=== PATIENT | male | born 1995 | race African-American/Black ===

== ENCOUNTER 2017-06-16 12:19 | Inpatient (IN) | payer BC ==
[~2017-06-16] VITALS: Ht 172.7 cm; Wt 55.0 kg
[~2017-06-16 12:19] MED LIST: AZIT250T94 PO; IBUP-1542 PO; UDROBDM PO
[2017-06-16] MEDS ORDERED: SOD CHLORIDE 0.9% 1,000 ML IV STA (12:26)
[2017-06-16 12:49] LABS: BASOPHILS % 0.3 % (0.0-2.0); EOSINOPHILS # 0.2 10^3/ul (0.0-0.5); EOSINOPHILS % 1.6 % (0.0-7.0); HEMATOCRIT 42.9 % (42.0-52.0); LYMPHOCYTES # 2.5 10^3/ul (0.8-2.9); LYMPHOCYTES % 24.9 % (15.0-51.0); MEAN CORPUSCULAR HEMOGLOBIN 27.6 pg (29.0-33.0); MEAN CORPUSCULAR HGB CONC 32.6 g/dl (32.0-37.0); MEAN CORPUSCULAR VOLUME 84.4 fl (82.0-101.0); MEAN PLATELET VOLUME 9.7 fl (7.4-10.4); MONOCYTE # 1.1 10^3/ul (0.3-0.9); MONOCYTES % 11.1 % (0.0-11.0); NEUTROPHIL # 6.2 10^3/ul (1.6-7.5); NEUTROPHILS % 61.7 % (39.0-77.0); PLATELET COUNT 267 10^3/UL (140-415); RED BLOOD COUNT 5.08 10^6/ul (4.70-6.10); RED CELL DISTRIBUTION WIDTH 13.3 % (11.5-14.5)
[2017-06-16] MEDS ORDERED: ONDANSETRON 4 MG INJ IV STA (13:05)
[2017-06-16 13:07] LABS: ALANINE AMINOTRANSFERASE 58 IU/L (13-69); ALBUMIN 4.6 g/dl (3.3-4.9); ALBUMIN/GLOBULIN RATIO 1.43; ALKALINE PHOSPHATASE 76 IU/L (42-121); ANION GAP 15 (8-16); ASPARTATE AMINO TRANSFERASE 89 IU/L (15-46); BILIRUBIN,INDIRECT 0.7 mg/dl (0-1.1); BILIRUBIN,TOTAL 0.7 mg/dl (0.2-1.3); BLOOD UREA NITROGEN 19 mg/dl (7-20); CALCIUM 9.3 mg/dl (8.4-10.2); CARBON DIOXIDE 29 mmol/L (21-31); CHLORIDE 101 mmol/L (97-110); CREATININE 1.03 mg/dl (0.61-1.24); GLUCOSE 178 mg/dl (70-220); POTASSIUM 3.7 mmol/L (3.5-5.1); SODIUM 141 mmol/L (135-144); TOTAL PROTEIN 7.8 g/dl (6.1-8.1)
--- NOTE | 2017-06-16 13:08 | ERA ---
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 The patient's family has reportedly been working with him to try and get him into rehab. He was actually scheduled to go to rehab today and the Van was on the way. The patient reportedly overdosed last night, but he did not seek help at that time. He was with a friend this afternoon before the van was set to arrive who injected the patient with what he thought was heroin. The patient apparently went unresponsive and apneic. The patient's friend was concerned that he was overdosing and he called the patient's mother who then called an ambulance. Upon cement handler arrival, the patient did appear to be apneic and unresponsive. He was given 0.4 mg of Narcan IM with great response. The patient became alert and agitated and nauseated. He remained alert during transport. The patient fell at some point last night or today. He had left-sided facial bruising and dried blood in his left nares. He reports having had a nosebleed at some point. Upon arrival, the patient was coughing up blood. It was unclear if this was from the nosebleed or from something else. The patient denies feeling sick recently. The patient denies fever or chills. The patient has had no headache or vision changes. The patient denies lightheadedness or dizziness. The patient has had no chest pain. The patient did endorse shortness of breath. The patient denies abdominal pain or changes to bowel movements or urination. The patient has had no focal deficits. The patient has had no weakness or numbness or tingling to the face or extremities. ROS All systems reviewed and are negative except as per history of present illness. Medications Home Meds Discontinued Scripts Ibuprofen* (Motrin*) 600 Mg Tab, 600 MG PO Q6, #14 TAB Prov:FILEMON CRUZ PA-C 02/03/16 Guaifenesin-Dextromethorphan* (Robitussin* DM) 100MG/10MG/5ML Syrup, 10 ML PO Q4H Y for COUGH for 7 Days, ML Prov:FILEMON CRUZ PA-C 02/03/16 Azithromycin* (Zithromax*) 250 Mg Tablet, 250 MG PO .STEFANIA DIRECTED, #6 TAB TAKE 500 MG (2 TABS) THE FIRST DAY THEN 250 MG (1 TAB) DAYS 2-5 Prov:FILEMON CRUZ PA-C 02/03/16 Allergies Allergies: Coded Allergies: No Known Allergy (Unverified , 06/16/17) PMhx/Soc History of Surgery: No Anesthesia Reaction: No Hx Neurological Disorder: No Hx Respiratory Disorders: Yes (asthma) Hx Cardiac Disorders: No Hx Psychiatric Problems: No Hx Miscellaneous Medical Probl: No Hx Alcohol Use: Yes (occasionally) Hx Substance Use: No Hx Tobacco Use: Yes Smoking Status: Current every day smoker FmHx Family History: No diabetes Physical Exam Vitals Vital Signs Date Time Temp Pulse Resp B/P Pulse Ox O2 Delivery O2 Flow Rate FiO2 06/16/17 12:30 98.7 101 18 119/92 98 Physical Exam Const: No apparent distress, well-developed, well-nourished Head: Left-sided facial bruising with soft tissue tenderness. Dried blood in the left nares. Eyes: Normal Conjunctiva. Extraocular movements intact. ENT: Normal External Ears, Nose and Mouth. Neck: Full range of motion. ~ No meningismus. Resp: Diffuse coarse breath sounds, bilateral rales. Cardio: Regular rate and rhythm, no murmurs Abd: Soft, non tender, non distended. Normal bowel sounds Skin: No petechiae or rashes Back: No midline or flank tenderness Ext: No cyanosis, or edema Neur: Awake and alert, oriented 4. Cranial nerves intact. No facial droop. Normal strength and sensation in all extremities. Coordination with finger to nose normal. Psych: Normal Mood and Affect Result Diagram: 06/16/17 1238 06/16/17 1238 Results 24 hrs Laboratory Tests Test 06/16/17 12:00 06/16/17 12:38 06/16/17 14:41 Creatine Kinase 209IU/L White Blood Count 10.010^3/ul Red Blood Count 5.0810^6/ul Hemoglobin 14.0g/dl Hematocrit 42.9% Mean Corpuscular Volume 84.4fl Mean Corpuscular Hemoglobin 27.6pg Mean Corpuscular Hemoglobin Concent 32.6g/dl Red Cell Distribution Width 13.3% Platelet Count 64900^3/UL Mean Platelet Volume 9.7fl Neutrophils % 61.7% Lymphocytes % 24.9% Monocytes % 11.1% Eosinophils % 1.6% Basophils % 0.3% Nucleated Red Blood Cells % 0.0/100WBC Neutrophils # 6.210^3/ul Lymphocytes # 2.510^3/ul Monocytes # 1.110^3/ul Eosinophils # 0.210^3/ul Basophils # 0.010^3/ul Nucleated Red Blood Cells # 0.010^3/ul Sodium Level 141mmol/L Potassium Level 3.7mmol/L Chloride Level 101mmol/L Carbon Dioxide Level 29mmol/L Anion Gap 15 Blood Urea Nitrogen 19mg/dl Creatinine 1.03mg/dl Glucose Level 178mg/dl Calcium Level 9.3mg/dl Total Bilirubin 0.7mg/dl Direct Bilirubin 0.00mg/dl Indirect Bilirubin 0.7mg/dl Aspartate Amino Transf (AST/SGOT) 89IU/L Alanine Aminotransferase (ALT/SGPT) 58IU/L Alkaline Phosphatase 76IU/L Total Protein 7.8g/dl Albumin 4.6g/dl Globulin 3.20g/dl Albumin/Globulin Ratio 1.43 Salicylates Level < 1.0mg/dl Acetaminophen Level < 10.0ug/ml Ethyl Alcohol Level < 10.0mg/dl Blood Gas Specimen Source Blood arterial Arterial Blood Date Drawn 06/16/2017 2:49:30 PM Arterial Blood pH (Temp corrected) 7.278 Arterial Blood pCO2 (Temp correct) 63.3mmhg Arterial Blood pO2 (Temp corrected) 268.7mmHG Arterial Blood HCO3 28.9mmol/L Arterial Blood Base Excess 0.4mmol/L Arterial Blood Oxygen Saturation 99.4mmHG Shyam Test ACCEPTAB Arterial Blood Gas Puncture Site Left Radial Arterial Blood Carboxyhemoglobin 0.3% Arterial Blood Methemoglobin 0.4% Blood Gas A-a O2 Differential 381.0mmHg Oxyhemoglobin Percent 98.7% Total Hemoglobin 15.1g/dl Blood Gas Temperature 37.0C Blood Gas Modality MASK - NRB FiO2 100.0% Blood Gas Critical Value Read Back MD SHALINI Blood Gas Notified Whom WILFREDO Blood Gas Notified Time 06/16/2017 2:53:29 PM Current Medications Medications (Trade) Dose Ordered Sig/Jacque Route PRN Reason Start Time Stop Time Status Last Admin Dose Admin Sodium Chloride (NS) 1,000 ml @ 1,000 mls/hr Q1H STAT IV 06/16/17 12:26 06/16/17 13:25 DC 06/16/17 12:37 Ondansetron HCl (Zofran Inj) 4 mg ONCE STAT IV 06/16/17 13:05 06/16/17 13:07 DC 06/16/17 13:12 Ondansetron HCl (Zofran Inj) 4 mg ER BRIDGE PRN IV NAUSEA AND/OR VOMITING 06/16/17 14:30 06/17/17 14:29 Acetaminophen (Tylenol Tab) 650 mg ER BRIDGE PRN PO MILD PAIN/FEVER 06/16/17 14:30 06/17/17 14:29 Procedures/MDM MDM Patient's presentation warrants further investigation. The patient has a history of polysubstance abuse but responded very well to Narcan. I am highly suspicious of narcotic overdose. The patient was responsive throughout his evaluation by me in the emergency department. He states that his friend gave him some IV drug that he is not sure of. He thinks he may have gotten a speedball based on how he feels presently. A toxicologic workup will be performed. During initial assessment, the patient had an episode of hemoptysis. He did have epistaxis earlier today and had dried blood in his nares. When he was connected to the monitor, he was also found to be hypoxic. Given that he received Narcan today, I have to be suspicious of Narcan-induced pulmonary edema. The patient's hemoptysis could be from his epistaxis LABS The patient's blood work was obtained and reviewed. The patient seemed shows no leukocytosis or left shift. The patient is afebrile, and I do not suspect a systemic infection. The patient is not anemic today. The patient's platelet count is unremarkable. The patient's CMP shows no signs of metabolic or electrolyte abnormality. The patient has normal renal and hepatic function testing. The patient's tox studies showed no salicylates or Tylenol or alcohol in his system. His UDS is pending. EKG EKG read by me: Rate/Rhythm: Regular rate and rhythm at a rate of 84 Intervals: Normal, incomplete right bundle branch block [place]: Normal Impression: J-point elevation, no evidence of acute ischemia or arrhythmia IMAGING CT head IMPRESSION: 1. No acute intracranial abnormality. No intracranial hemorrhage, extra-axial fluid collection, mass lesion or hydrocephalous. 2. No loss of cheng-white matter differentiation to suggest diffuse hypoxic ischemic injury at this time. If clinical concern for hypoxic ischemic injury, MRI is recommended for further evaluation. Electronically viewed and signed by .Kieran Cardona MD, MD on 06/16/2017 14: 11 CT Face IMPRESSION: 1. Suggestion of a nondisplaced fracture of the nasal spine of the maxilla. 2. Otherwise, normal CT of the maxillofacial region. No evidence of fracture. Electronically viewed and signed by .Kieran Cardona MD, MD on 06/16/2017 14: 14 CXR IMPRESSION: Diffuse bilateral ground-glass lung densities. This may represent edema or pneumonia Electronically viewed and signed by .Williams Ruby MD, on 06/16/2017 13:41 TREATMENT/DISPOSITION At this time, am concerned about flash pulmonary edema related to narcotic overdose and Narcan administration. The patient was oxygenating very well on nonrebreather, and he appeared more comfortable. It is unclear at this time if the patient is having hemoptysis from his lungs versus his recent epistaxis. After his initial first few coughs, the hemoptysis appeared to resolve. The patient does have a nasal bone fracture but no obvious other abnormalities to the face. There are no intracranial abnormality. The patient's blood work is essentially unremarkable. We will need to follow-up with his UDS. At this time , however, I do not feel that any further emergent treatment is necessary. The patient will require admission to the hospital. He was accepted by Dr. Jacobsen as per his insurance status at 2:30 PM on June 16, 2017 to a telemetry bed. She requested that an ABG be drawn with consideration of changing to ICU level care if necessary. Of note, the patient reports that he has tested negative for HIV in the past. Another possible etiology of his diffuse interstitial markings could be PCP. His HIV status should be further elucidated in the hospital. Pneumonia is another possibility, but I do not see evidence of a infection at this time. Pulmonary edema is higher on my differential. The patient was signed out to Dr. Farah at 2:45 PM on June 16, 2017. The patient is currently pending the ABG. Departure Diagnosis: Primary Impression: Intentional drug overdose Qualified Code: T50.902A - Intentional drug overdose, initial encounter Additional Impressions: Flash pulmonary edema Heroin abuse KIERAN HULL MD Jun 16, 2017 13:08
[2017-06-16 13:15] LABS: ACETAMINOPHEN < 10.0 ug/ml (10.0-30.0)
[2017-06-16 13:16] LABS: ETHANOL < 10.0 mg/dl; SALICYLATE < 1.0 mg/dl (5.0-30.0)
--- NOTE | 2017-06-16 13:42 | RADRPT ---
PROCEDURE: Chest x-ray CLINICAL INDICATION: Altered level of consciousness TECHNIQUE: Chest single view COMPARISON: None FINDINGS: The heart is normal in size. There are bilateral ground-glass lung densities. This may represent wendy ma or pneumonia. Costophrenic angles are sharp. Bony thorax is unremarkable. IMPRESSION: Diffuse bilateral ground-glass lung densities. This may represent edema or pneumonia RPTAT: HH .Williams Ruby MD, MD Date Time Electronically viewed and signed by .Williams Ruby MD, on 06/16/2017 13:41 .W/
--- NOTE | 2017-06-16 14:12 | RADRPT ---
PROCEDURE: CT Head without. CLINICAL INDICATION: Altered level status. TECHNIQUE: The study was performed utilizing a multi-slice, multidetector CT scanner. Direct spira l 1 mm axial sections were obtained through the head without the use of intravenous contrast materia l. 1 or more of the following dose reduction techniques were utilized: Automated exposure control, adjustment of the mA and/or kV according to patient's size, iterative reconstruction technique. Co marvin and sagittal reformations were obtained. The images were reviewed on a PACS workstation. RADIATION DOSE: CTDIvol: 42.2 mGyDLP: 720.2 mGy-cm COMPARISON: No prior studies are available for comparison. FINDINGS: There is no intracranial hemorrhage, extra-axial fluid collection, mass lesion, midline shift or hyd rocephalus. The ventricles, sulci and cisterns are within normal limits. The white matter is unrem arkable. The cheng-white matter differentiation is preserved. The basal cisterns are patent. The m idline structures are intact. The orbits, calvarium and extracranial soft tissues are normal in jaime earance. The visualized paranasal sinuses, mastoid air cells and middle ear cavities are normally ae rated. There is pneumatization of the bilateral petrous apices without evidence of inflammatory kramer ges, normal variant. IMPRESSION: 1. No acute intracranial abnormality. No intracranial hemorrhage, extra-axial fluid collection, ma ss lesion or hydrocephalous. 2. No loss of cheng-white matter differentiation to suggest diffuse hypoxic ischemic injury at this time. If clinical concern for hypoxic ischemic injury, MRI is recommended for further evaluation. RPTAT: HGAS .Mariano Cardona MD, Date Time Electronically viewed and signed by .Mariano Cardona MD, on 06/16/2017 14:11 .S/
--- NOTE | 2017-06-16 14:14 | RADRPT ---
PROCEDURE: CT Maxillofacial without. CLINICAL INDICATION: Facial trauma. TECHNIQUE: The study was performed utilizing a multi-slice, multidetector CT scanner. Direct spira l 1 mm axial sections were obtained through the head without the use of intravenous contrast materia l. 1 or more of the following dose reduction techniques were utilized: Automated exposure control, adjustment of the mA and/or kV according to patient's size, iterative reconstruction technique. Co marvin and sagittal reformations were obtained. The images were reviewed on a PACS workstation. RADIATION DOSE: CTDIvol: 29 point save mGyDLP: Is 621.4 mGy-cm COMPARISON: No prior studies are available for comparison. FINDINGS: The maxilla, zygomatic arches and ethmoid bone intact. The nasal bones are intact. The paranasal s inuses are normally aerated. There is a possible nondisplaced fracture of the nasal spine of the ma xilla (axial series with 58).. The visualized mandible is normal in appearance. The soft tissues a re unremarkable. Limited visualization of the intracranial contents is normal in appearance. The n asopharynx and oropharynx are normal in appearance. IMPRESSION: 1. Suggestion of a nondisplaced fracture of the nasal spine of the maxilla. 2. Otherwise, normal CT of the maxillofacial region. No evidence of fracture. RPTAT: HGAS .Mariano Cardona MD, MD Date Time Electronically viewed and signed by .Mariano Cardona MD, MD on 06/16/2017 14:14 .S/
[2017-06-16] MEDS ORDERED: ONDANSETRON 4 MG INJ IV PRN ×2 (14:30→18:30)
[2017-06-16] MEDS ORDERED: ACETAMINOPHEN 325 MG TAB PO PRN ×2 (14:30→18:30)
[2017-06-16 14:54] LABS: Allen Test ACCEPTAB; Arterial Base Excess 0.4 mmol/L (-3.0-3); Arterial COHb 0.3 % (0.0-3.0); Arterial Fraction of Oxyhgb 98.7 % (93.0-99.0); Arterial HCO3 28.9 mmol/L (22.0-26.0); Arterial MetHb 0.4 % (0.0-1.5); Arterial Total Hemglobin 15.1 g/dl (12.0-18.0); MODE MASK - NRB
[2017-06-16 15:07] VITALS: TEMP 97.1
[2017-06-16 15:38] LABS: ADD UMIC YES; UR ASCORBIC ACID 40 mg/dL (NEGATIVE); UR BILIRUBIN (Dip) NEGATIVE (NEGATIVE); UR BLOOD (Dip) NEGATIVE (NEGATIVE); UR CLARITY SLIGHTLY CLOUDY (CLEAR); UR COLOR YELLOW (YELLOW); UR GLUCOSE (Dip) NEGATIVE (NEGATIVE); UR KETONES (Dip) TRACE mg/dL (NEGATIVE); UR LEUKOCYTE ESTERASE (Dip) NEGATIVE Leu/ul (NEGATIVE); UR NITRITE (Dip) NEGATIVE (NEGATIVE); UR RBC 1 /HPF (0-5); UR SPECIFIC GRAVITY (Dip) 1.023 (1.003-1.030); UR TOTAL PROTEIN (Dip) 2+ mg/dl (NEGATIVE); UR UROBILINOGEN (Dip) 1+ mg/dL (NEGATIVE)
[2017-06-16 15:43] LABS: CANNABINOIDS Positive (NEGATIVE); COCAINE Positive (NEGATIVE)
[2017-06-16 15:56] LABS: BARBITURATES Negative (NEGATIVE); BENZODIAZEPINES Positive (NEGATIVE); OPIATES Positive (NEGATIVE)
[2017-06-16] MEDS ORDERED: NALOXONE (0.4 MG/ML) INJ IV ONE (17:20)
[2017-06-16] MEDS ORDERED: NALOXONE (0.4 MG/ML) INJ ONE (17:32)
--- NOTE | 2017-06-16 17:53 | CONS ---
Date/Time of Note Date/Time of Note DATE: 06/16/17 TIME: 17:46 Assessment/Plan Assessment/Plan Additional Assessment/Plan IMP: 1. Hypercapnic Resp Insufficiency--secondary to heroin OD 2. Polysubstance Abuse--heroin, methamphetamines, cannabis, benzo's 3. Heroin-Induced Non-cardiogenic pulmonary edema RECS: 1. Narcan gtt 2. Observe in ICU 3. Withdrawal precautions 4. Continue BiPAP 5. 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 The patient's family has reportedly been working with him to try and get him into rehab. He was actually scheduled to go to rehab today and the Van was on the way. The patient reportedly overdosed last night, but he did not seek help at that time. He was with a friend this afternoon before the van was set to arrive who injected the patient with what he thought was heroin. The patient apparently went unresponsive and apneic.The patient's friend was concerned that he was overdosing and he called the patient's mother who then called an ambulance. Upon sap pp consultant arrival, the patient did appear to be apneic and unresponsive. He was given 0.4 mg of Narcan IM with great response. At the time of my arrival patient was minimally responsive on BiPAP. Responded to a 2nd dose of narcan. Subjective hx not possible: pt non-verbal Past Medical History Polysubstance abuse Past Surgical History Past Surgical Hx: no surgical history Family History Significant Family History: no pertinent family hx Social History Smoking Status: Current every day smoker Drug Use: cocaine, heroin, marijuana, other (amphetamines) Exam/Review of Systems Vital Signs Vitals Vital Signs Date Time Temp Pulse Resp B/P Pulse Ox O2 Delivery O2 Flow Rate FiO2 06/16/17 15:07 97.1 62 16 132/75 100 Non Rebreather 15.0 Exam Constitutional: non-verbal Psych: confusion Head: atraumatic, normocephalic Eyes: EOMI, nl conjunctiva, nl lids ENMT: nl external ears & nose, nl lips & teeth, nl nasal mucosa & septum Neck: non-tender, supple Respiratory: crackles/rales, diminished breath sounds Cardiovascular: regular rate and rhythm Gastrointestinal: nl liver, spleen, non-tender, soft Extremities: normal pulses Results Result Diagram: 06/16/17 1238 06/16/17 1238 Results 24 hrs Laboratory Tests Test 06/16/17 12:00 06/16/17 12:38 06/16/17 14:41 06/16/17 15:10 Creatine Kinase 209 H White Blood Count 10.0 Red Blood Count 5.08 Hemoglobin 14.0 Hematocrit 42.9 Mean Corpuscular Volume 84.4 Mean Corpuscular Hemoglobin 27.6 L Mean Corpuscular Hemoglobin Concent 32.6 Red Cell Distribution Width 13.3 Platelet Count 267 Mean Platelet Volume 9.7 Neutrophils % 61.7 Lymphocytes % 24.9 Monocytes % 11.1 H Eosinophils % 1.6 Basophils % 0.3 Nucleated Red Blood Cells % 0.0 Neutrophils # 6.2 Lymphocytes # 2.5 Monocytes # 1.1 H Eosinophils # 0.2 Basophils # 0.0 Nucleated Red Blood Cells # 0.0 Sodium Level 141 Potassium Level 3.7 Chloride Level 101 Carbon Dioxide Level 29 Anion Gap 15 Blood Urea Nitrogen 19 Creatinine 1.03 Glucose Level 178 Calcium Level 9.3 Total Bilirubin 0.7 Direct Bilirubin 0.00 Indirect Bilirubin 0.7 Aspartate Amino Transf (AST/SGOT) 89 H Alanine Aminotransferase (ALT/SGPT) 58 Alkaline Phosphatase 76 Total Protein 7.8 Albumin 4.6 Globulin 3.20 Albumin/Globulin Ratio 1.43 Salicylates Level < 1.0 L Acetaminophen Level < 10.0 L Ethyl Alcohol Level < 10.0 Blood Gas Specimen Source Blood arterial Arterial Blood Date Drawn 06/16/2017 2:49:30 PM Arterial Blood pH (Temp corrected) 7.278 *L Arterial Blood pCO2 (Temp correct) 63.3 H Arterial Blood pO2 (Temp corrected) 268.7 H Arterial Blood HCO3 28.9 H Arterial Blood Base Excess 0.4 Arterial Blood Oxygen Saturation 99.4 H Shyam Test ACCEPTAB Arterial Blood Gas Puncture Site Left Radial Arterial Blood Carboxyhemoglobin 0.3 Arterial Blood Methemoglobin 0.4 Blood Gas A-a O2 Differential 381.0 H Oxyhemoglobin Percent 98.7 Total Hemoglobin 15.1 Blood Gas Temperature 37.0 Blood Gas Modality MASK - NRB FiO2 100.0 Blood Gas Critical Value Read Back MD SHALINI Blood Gas Notified Whom [place] Blood Gas Notified Time 06/16/2017 2:53:29 PM Urine Color YELLOW Urine Clarity SLIGHTLY CLOUDY A Urine pH 5.0 Urine Specific [place] 1.023 Urine Ketones TRACE A Urine Nitrite NEGATIVE Urine Bilirubin NEGATIVE Urine Urobilinogen 1+ H Urine Leukocyte Esterase NEGATIVE Urine Microscopic RBC 1 Urine Microscopic WBC 2 Urine Hemoglobin NEGATIVE Urine Glucose NEGATIVE Urine Total Protein 2+ H Urine Opiates Screen Positive Urine Barbiturates Negative Urine Amphetamines Screen POSITIVE Urine Benzodiazepines Screen Positive Urine Cocaine Screen Positive Urine Cannabinoids Positive Medications Medications Current Medications Naloxone HCl/ Dextrose (Narcan/D5W) 500 ml @ 0 mls/hr TITRATE IV ; Start at 18:00 VIRGIL SOLIZ MD Jun 16, 2017 17:53
[2017-06-16] MEDS ORDERED: NALOXONE 2 MG/2 ML SYG 2 MG in DEXTROSE 5% 498 ML IV SCH (18:00)
[2017-06-16] MEDS ORDERED: BISACODYL 10 MG SUPP PR PRN (18:30)
[2017-06-16] MEDS ORDERED: DOCUSATE SODIUM 100 MG CAP PO PRN (18:30)
[2017-06-16] MEDS ORDERED: ALBUTEROL 0.083% (NEB) 2.5 MG/3 ML AMP NEB PRN (18:30)
[2017-06-16] MEDS ORDERED: MAGNESIUM HYDROXIDE 30ML CUP PO PRN (18:30)
[2017-06-16] MEDS ORDERED: LORAZEPAM 2 MG INJ IV PRN (18:30)
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
[2017-06-17] VITALS (32 sets, daily range): BP systolic 101–133; BP diastolic 54–114; PULSE 72–96; RESP 18–42; Ht 172.7 cm; Wt 55.0 kg
[2017-06-17] MEDS: FAMOTIDINE 20 MG INJ IV SCH ×3 (00:02→20:59)
[2017-06-17] MEDS: DEXTROSE 5%-0.9% NACL 1,000 ML IV SCH ×4 (01:44→19:04)
[2017-06-17 04:41] LABS: AADO2 Arterial 240.9 mmHg (7.0-24.0); Arterial Base Excess 1.4 mmol/L (-3.0-3); Arterial COHb 0.3 % (0.0-3.0); Arterial Fraction of Oxyhgb 98.2 % (93.0-99.0); Arterial HCO3 27.2 mmol/L (22.0-26.0); Arterial MetHb 0.3 % (0.0-1.5); Arterial Total Hemglobin 13.6 g/dl (12.0-18.0); MODE MASK - SIMPLE
[2017-06-17 06:17] LABS: BASOPHILS % 0.1 % (0.0-2.0); EOSINOPHILS # 0.1 10^3/ul (0.0-0.5); EOSINOPHILS % 0.4 % (0.0-7.0); HEMATOCRIT 39.6 % (42.0-52.0); HEMOGLOBIN 12.6 g/dl (14.0-18.0); LYMPHOCYTES # 1.3 10^3/ul (0.8-2.9); LYMPHOCYTES % 8.2 % (15.0-51.0); MEAN CORPUSCULAR HGB CONC 31.8 g/dl (32.0-37.0); MEAN CORPUSCULAR VOLUME 84.8 fl (82.0-101.0); MEAN PLATELET VOLUME 10.1 fl (7.4-10.4); MONOCYTE # 1.2 10^3/ul (0.3-0.9); MONOCYTES % 7.9 % (0.0-11.0); NEUTROPHIL # 12.9 10^3/ul (1.6-7.5); PLATELET COUNT 216 10^3/UL (140-415); RED BLOOD COUNT 4.67 10^6/ul (4.70-6.10); RED CELL DISTRIBUTION WIDTH 13.4 % (11.5-14.5); WHITE BLOOD COUNT 15.6 10^3/ul (4.8-10.8)
[2017-06-17 06:29] LABS: ALBUMIN 3.8 g/dl (3.3-4.9); ALBUMIN/GLOBULIN RATIO 1.4; BILIRUBIN,INDIRECT 1.2 mg/dl (0-1.1); BILIRUBIN,TOTAL 1.2 mg/dl (0.2-1.3); CREATININE 0.9 mg/dl (0.61-1.24); POTASSIUM 4.1 mmol/L (3.5-5.1); TOTAL PROTEIN 6.5 g/dl (6.1-8.1)
[2017-06-17 06:40] LABS: CALCIUM 8.7 mg/dl (8.4-10.2)
--- NOTE | 2017-06-17 07:19 | RADRPT ---
PROCEDURE: XR Chest. CLINICAL INDICATION: Shortness of breath TECHNIQUE: AP Portable chest. COMPARISON: 06/16/2017 FINDINGS: The cardiomediastinal silhouette is normal. The aorta is normal. Bilateral ground-glass opacities ar e again demonstrated, more pronounced in the right upper lobe. Increased retrocardiac opacity is als o noted. No pneumothorax is seen. The right minor fissure is elevated. The osseous structures are i ntact. IMPRESSION: Extensive bilateral ground-glass infiltrates, increased in the right upper lobe. Retrocardiac consolidation or atelectasis. Physician Adilia Date Time Electronically viewed and signed by Physician Adilia on 06/17/2017 07:19 CS/
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
[2017-06-17] MEDS: PIPER-TAZO 3.375 GM IV (PMX) 100 ML IVPB SCH ×3 (10:09→21:09)
--- NOTE | 2017-06-17 12:07 | CONS ---
Date/Time of Note Date/Time of Note DATE: 06/17/17 TIME: 12:02 Consult Date/Type/Reason Admit Date/Time Jun 16, 2017 at 14:24 Initial Consult Date Type of Consultation: Pulm/CCM Ordering Provider: GENNY ZAVALA Subjective Remains on narcan gtt. Off BiPAP; resting and arousable. Objective Vital Signs Date Time Temp Pulse Resp B/P Pulse Ox O2 Delivery O2 Flow Rate FiO2 06/17/17 08:00 79 06/17/17 06:30 27 116/72 100 06/17/17 06:00 Mask 10.0 06/17/17 04:00 98.6 06/17/17 00:40 40 Intake and Output 06/16/17 06/16/17 06/17/17 15:00 23:00 07:00 Intake Total 756 ml Output Total 700 ml Balance 56 ml Exam HEENT: Neck supple; no JVD; no LAD CVS: RRR, S1 and S2 CHEST: Clear; + bruising on chest wall ABD: Soft, NT, + BS EXT: No c/c/e Results/Medications Result Diagram: 06/17/17 0458 06/17/17 0458 Results 24 hrs Laboratory Tests Test 06/16/17 12:38 06/16/17 14:41 06/16/17 15:10 06/17/17 04:58 White Blood Count 10.0 15.6 #H Red Blood Count 5.08 4.67 L Hemoglobin 14.0 12.6 L Hematocrit 42.9 39.6 L Mean Corpuscular Volume 84.4 84.8 Mean Corpuscular Hemoglobin 27.6 L 27.0 L Mean Corpuscular Hemoglobin Concent 32.6 31.8 L Red Cell Distribution Width 13.3 13.4 Platelet Count 267 216 Mean Platelet Volume 9.7 10.1 Neutrophils % 61.7 83.0 H Lymphocytes % 24.9 8.2 L Monocytes % 11.1 H 7.9 Eosinophils % 1.6 0.4 Basophils % 0.3 0.1 Nucleated Red Blood Cells % 0.0 0.0 Neutrophils # 6.2 12.9 H Lymphocytes # 2.5 1.3 Monocytes # 1.1 H 1.2 H Eosinophils # 0.2 0.1 Basophils # 0.0 0.0 Nucleated Red Blood Cells # 0.0 0.0 Sodium Level 141 137 Potassium Level 3.7 4.1 Chloride Level 101 99 Carbon Dioxide Level 29 32 H Anion Gap 15 10 # Blood Urea Nitrogen 19 13 Creatinine 1.03 0.90 Glucose Level 178 102 # Calcium Level 9.3 8.7 Total Bilirubin 0.7 1.2 Direct Bilirubin 0.00 0.00 Indirect Bilirubin 0.7 1.2 H Aspartate Amino Transf (AST/SGOT) 89 H 43 # Alanine Aminotransferase (ALT/SGPT) 58 50 Alkaline Phosphatase 76 61 Total Protein 7.8 6.5 # Albumin 4.6 3.8 Globulin 3.20 2.70 Albumin/Globulin Ratio 1.43 1.40 Salicylates Level < 1.0 L Acetaminophen Level < 10.0 L Ethyl Alcohol Level < 10.0 Blood Gas Specimen Source Blood arterial Arterial Blood Date Drawn 06/16/2017 2:49:30 PM Arterial Blood pH (Temp corrected) 7.278 *L Arterial Blood pCO2 (Temp correct) 63.3 H Arterial Blood pO2 (Temp corrected) 268.7 H Arterial Blood HCO3 28.9 H Arterial Blood Base Excess 0.4 Arterial Blood Oxygen Saturation 99.4 H Shyam Test ACCEPTAB Arterial Blood Gas Puncture Site Left Radial Arterial Blood Carboxyhemoglobin 0.3 Arterial Blood Methemoglobin 0.4 Blood Gas A-a O2 Differential 381.0 H Oxyhemoglobin Percent 98.7 Total Hemoglobin 15.1 Blood Gas Temperature 37.0 Blood Gas Modality MASK - NRB FiO2 100.0 Blood Gas Critical Value Read Back MD SHALINI Blood Gas Notified Whom [place] Blood Gas Notified Time 06/16/2017 2:53:29 PM Urine Color YELLOW Urine Clarity SLIGHTLY CLOUDY A Urine pH 5.0 Urine Specific [place] 1.023 Urine Ketones TRACE A Urine Nitrite NEGATIVE Urine Bilirubin NEGATIVE Urine Urobilinogen 1+ H Urine Leukocyte Esterase NEGATIVE Urine Microscopic RBC 1 Urine Microscopic WBC 2 Urine Hemoglobin NEGATIVE Urine Glucose NEGATIVE Urine Total Protein 2+ H Urine Opiates Screen Positive Urine Barbiturates Negative Urine Amphetamines Screen POSITIVE Urine Benzodiazepines Screen Positive Urine Cocaine Screen Positive Urine Cannabinoids Positive Lactic Acid Level 2.2 *H Creatine Kinase 260 H Test 06/17/17 05:00 Blood Gas Specimen Source Blood arterial Arterial Blood Date Drawn 06/17/2017 4:30:00 AM Arterial Blood pH (Temp corrected) 7.377 Arterial Blood pCO2 (Temp correct) 47.3 H Arterial Blood pO2 (Temp corrected) 142.1 H Arterial Blood HCO3 27.2 H Arterial Blood Base Excess 1.4 Arterial Blood Oxygen Saturation 98.8 H Shyam Test N/A Arterial Blood Gas Puncture Site Right Brachial Arterial Blood Carboxyhemoglobin 0.3 Arterial Blood Methemoglobin 0.3 Blood Gas A-a O2 Differential 240.9 H Oxyhemoglobin Percent 98.2 Total Hemoglobin 13.6 Blood Gas Temperature 37.0 Blood Gas Modality MASK - SIMPLE FiO2 61.0 Blood Gas Notified Whom [place] Blood Gas Notified Time 06/17/2017 4:40:00 AM Medications Current Medications Naloxone HCl/ Dextrose (Narcan/D5W) 500 ml @ 0 mls/hr TITRATE IV Last administered on 06/16/17 19:24; Admin Dose 2 MLS/HR; Start 06/16/17 at 18:00 Ondansetron HCl (Zofran Inj) 4 mg Q6H PRN IV NAUSEA AND/OR VOMITING; Start at 18:30 Acetaminophen (Tylenol Tab) 650 mg Q6H PRN PO PAIN LEVEL 1-3 OR FEVER; Start at 18:30 Morphine Sulfate (morphine) 2 mg Q4H PRN IV PAIN LEVEL 7-10; Start 06/16/17 at 18:30 Lorazepam (Ativan) 1 mg Q2H PRN IV ANXIETY; Start 06/16/17 at 18:30 Docusate Sodium (Colace) 100 mg Q12H PRN PO CONSTIPATION; Start 06/16/17 at 18: 30 Magnesium Hydroxide (Milk Of Mag) 30 ml DAILY PRN PO CONSTIPATION; Start at 18:30 Bisacodyl (Dulcolax Supp) 10 mg DAILY PRN [place] CONSTIPATION; Start 06/16/17 at 18 :30 Famotidine 20 mg 20 mg Q12 IV Last administered on 06/17/17 10:08; Admin Dose 20 MG; Start 06/16/17 at 21:00 Dextrose/Sodium Chloride 1,000 ml @ 125 mls/hr Q8H IV Last administered on 11:23; Admin Dose 125 MLS/HR; Start 06/16/17 at 19:00 Piperacillin Sod/ Tazobactam Sod (Zosyn 3.375gm/ 100 ml (Pmx)) 100 ml @ 200 mls /hr Q8 IVPB Last administered on 06/17/17t 10:09; Admin Dose 200 MLS/HR; Start 06/17/17 at 09:30 Assessment/Plan Additional Assessment/Plan IMP: 1. Hypercapnic Resp Insufficiency--secondary to heroin OD 2. Polysubstance Abuse--heroin, methamphetamines, cannabis, and benzo's 3. Heroin-Induced Non-cardiogenic pulmonary edema. Less likely aspiration pneumonitis. Doubt PCP 4. Chest wall bruising RECS: 1. D/C Narcan gtt 2. Observe in ICU off narcan for 1 day 3. Withdrawal precautions; ativan prn 4. BiPAP prn 5. Agree with CT chest to evaluate for rib fx; also may be helpful for eval of parenchymal lung disease, which I suspect is c/w heroin induced non-cardiogenic edema 6. HIV testing 35 min cc time VIRGIL SOLIZ MD Jun 17, 2017 12:07
--- NOTE | 2017-06-17 13:20 | RADRPT ---
PROCEDURE: CT Chest without contrast. CLINICAL INDICATION: Trauma. Hemoptysis. Chest pain. TECHNIQUE: Helical axial sections were obtained through the chest without intravenous contrast enh ancement. Coronal and sagittal reformatted images were obtained from the axial source images. Total exam DLP is 187.19 mGy-cm. CTDIvol is 4.34 mGy. One or more of the following dose reduction tech niques were used: Automated exposure control, adjustment of the mA and/or kV according to patient si ze, use of iterative reconstruction technique. COMPARISON: Chest x-ray done earlier the same day. FINDINGS: There is extensive bilateral pulmonary patchy ground-glass opacification of the lungs. There is no pulmonary nodule or mass lesion. There is no mediastinal or hilar lymphadenopathy or mass. There is no axillary, supraclavicular, or internal mammary lymphadenopathy. The thoracic aorta is not dilated. The heart size is normal. There is no pleural effusion or pericardial effusion. Images through the upper abdomen demonstrate normal visualized portions of the liver, spleen, and ad renals. The osseous structures are unremarkable with no fracture or lytic lesion. IMPRESSION: 1. Extensive bilateral pulmonary patchy ground-glass opacification of the lungs, consistent with an inflammatory or infectious process. This can also be seen with pulmonary hemorrhage. Clinical corre lation is advised. 2. Otherwise unremarkable study. RPTAT: QQ .Adonis Harrison MD, Date Time Electronically viewed and signed by .Adonis Harrison MD, on 06/17/2017 13:19 .R/
[2017-06-17] MEDS ORDERED: FUROSEMIDE 20 MG INJ IV ONE (20:30)
[2017-06-18] VITALS (21 sets, daily range): BP systolic 100–137; BP diastolic 42–91; PULSE 48–82; RESP 17–35
[2017-06-18] MEDS: DEXTROSE 5%-0.9% NACL 1,000 ML IV SCH ×4 (02:36→17:41)
[2017-06-18] MEDS: morphine 2 MG INJ IV PRN ×2 (03:20→19:46)
[2017-06-18 05:52] LABS: BASOPHILS % 0.3 % (0.0-2.0); EOSINOPHILS # 0.1 10^3/ul (0.0-0.5); EOSINOPHILS % 1.1 % (0.0-7.0); HEMATOCRIT 37.2 % (42.0-52.0); HEMOGLOBIN 12.2 g/dl (14.0-18.0); LYMPHOCYTES # 0.8 10^3/ul (0.8-2.9); LYMPHOCYTES % 9.7 % (15.0-51.0); MEAN CORPUSCULAR HEMOGLOBIN 27.5 pg (29.0-33.0); MEAN CORPUSCULAR HGB CONC 32.8 g/dl (32.0-37.0); MEAN CORPUSCULAR VOLUME 83.8 fl (82.0-101.0); MEAN PLATELET VOLUME 9.8 fl (7.4-10.4); MONOCYTE # 0.9 10^3/ul (0.3-0.9); MONOCYTES % 10.8 % (0.0-11.0); NEUTROPHIL # 6.1 10^3/ul (1.6-7.5); NEUTROPHILS % 77.8 % (39.0-77.0); PLATELET COUNT 202 10^3/UL (140-415); RED BLOOD COUNT 4.44 10^6/ul (4.70-6.10); RED CELL DISTRIBUTION WIDTH 12.9 % (11.5-14.5); WHITE BLOOD COUNT 7.8 10^3/ul (4.8-10.8)
[2017-06-18] MEDS: PIPER-TAZO 3.375 GM IV (PMX) 100 ML IVPB SCH ×3 (06:36→21:15)
[2017-06-18 06:38] LABS: MAGNESIUM 1.8 mg/dl (1.7-2.5); PHOSPHORUS 2.7 mg/dl (2.5-4.9)
[2017-06-18 06:48] LABS: CALCIUM 8.8 mg/dl (8.4-10.2); CREATININE 0.78 mg/dl (0.61-1.24); POTASSIUM 3.9 mmol/L (3.5-5.1)
[2017-06-18] MEDS: FAMOTIDINE 20 MG INJ IV SCH ×2 (08:46→21:15)
--- NOTE | 2017-06-18 12:08 | CONS ---
Date/Time of Note Date/Time of Note DATE: 06/18/17 TIME: 12:07 Assessment/Plan Assessment/Plan Additional Assessment/Plan Assessment and recommendations; 1. Patient admitted with multidrug overdose with significant improvement in clinical status. 2. Noncardiogenic pulmonary edema. Continue current treatment. Will obtain follow-up chest x-ray. Consultation Date/Type/Reason Admit Date/Time Jun 16, 2017 at 14:24 Initial Consult Date Type of Consultation: Pulm/CCM Referring Provider: GENNY ZAVALA 24 HR Interval Summary Free Text/Dictation Patient's condition remains stable. Off Narcan drip. Patient has remained hemodynamically stable. General exam; young male, awake and alert. Currently in no distress. Exam/Review of Systems Vital Signs Vitals Vital Signs Date Time Temp Pulse Resp B/P Pulse Ox O2 Delivery O2 Flow Rate FiO2 06/18/17 09:00 82 26 118/84 100 Nasal Cannula 2.0 06/18/17 08:00 98.6 06/17/17 00:40 40 Intake and Output 06/17/17 06/17/17 06/18/17 15:00 23:00 07:00 Intake Total 2415 ml 875 ml 1450 ml Output Total 1900 ml 0 ml 1575 ml Balance 515 ml 875 ml -125 ml Exam HEENT exam; supple neck, no JVD. No lymphadenopathy. Midline trachea. No thyromegaly. Patient has fair dentition. Pupils are small bilaterally. Chest exam; clear to auscultation. S1-S2 audible, no murmurs. Regular rhythm. Abdomen exam; soft, no organomegaly. Nontender. Bowel sounds audible. Extremity exam; no peripheral edema. Pulses 1+ bilaterally. ALL SOURCE COLLECTION MANAGER exam; no focal deficit. Results Result Diagram: 06/18/1725 06/18/1725 Results 24 hrs Laboratory Tests Test 06/17/17 12:17 06/18/17 05:25 Lactic Acid Level 2.2 *H White Blood Count 7.8 # Red Blood Count 4.44 L Hemoglobin 12.2 L Hematocrit 37.2 L Mean Corpuscular Volume 83.8 Mean Corpuscular Hemoglobin 27.5 L Mean Corpuscular Hemoglobin Concent 32.8 Red Cell Distribution Width 12.9 Platelet Count 202 Mean Platelet Volume 9.8 Neutrophils % 77.8 H Lymphocytes % 9.7 L Monocytes % 10.8 Eosinophils % 1.1 Basophils % 0.3 Nucleated Red Blood Cells % 0.0 Neutrophils # 6.1 Lymphocytes # 0.8 Monocytes # 0.9 Eosinophils # 0.1 Basophils # 0.0 Nucleated Red Blood Cells # 0.0 Sodium Level 139 Potassium Level 3.9 Chloride Level 105 Carbon Dioxide Level 29 Anion Gap 9 Blood Urea Nitrogen 4 #L Creatinine 0.78 Glucose Level 98 Calcium Level 8.8 Phosphorus Level 2.7 Magnesium Level 1.8 Creatine Kinase 327 H Medications Medications Current Medications Ondansetron HCl (Zofran Inj) 4 mg Q6H PRN IV NAUSEA AND/OR VOMITING; Start at 18:30 Acetaminophen (Tylenol Tab) 650 mg Q6H PRN PO PAIN LEVEL 1-3 OR FEVER; Start at 18:30 Morphine Sulfate (morphine) 2 mg Q4H PRN IV PAIN LEVEL 7-10 Last administered on 06/18/17 03:20; Admin Dose 2 MG; Start 06/16/17 at 18:30 Lorazepam (Ativan) 1 mg Q2H PRN IV ANXIETY; Start 06/16/17 at 18:30 Docusate Sodium (Colace) 100 mg Q12H PRN PO CONSTIPATION; Start 06/16/17 at 18: 30 Magnesium Hydroxide (Milk Of Mag) 30 ml DAILY PRN PO CONSTIPATION; Start at 18:30 Bisacodyl (Dulcolax Supp) 10 mg DAILY PRN [place] CONSTIPATION; Start 06/16/17 at 18 :30 Famotidine 20 mg 20 mg Q12 IV Last administered on 06/18/17 08:46; Admin Dose 20 MG; Start 06/16/17 at 21:00 Dextrose/Sodium Chloride 1,000 ml @ 125 mls/hr Q8H IV Last administered on 08:47; Admin Dose 125 MLS/HR; Start 06/16/17 at 19:00 Piperacillin Sod/ Tazobactam Sod (Zosyn 3.375gm/ 100 ml (Pmx)) 100 ml @ 200 mls /hr Q8 IVPB Last administered on 06/18/17 06:36; Admin Dose 200 MLS/HR; Start 06/17/17 at 09:30 EMILEE CASTLE Jun 18, 2017 12:08
--- NOTE | 2017-06-18 12:57 | PN ---
Date/Time of Note Date/Time of Note DATE: 06/18/17 TIME: 12:20 Assessment/Plan VTE Prophylaxis VTE Prophylaxis Intervention: SCD's Lines/Catheters IV Catheter Type (from Nrs): Saline Lock Assessment/Plan Assessment/Plan 21-year-old male with: 1. 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 Sheldon, patient on 2L NC and stable Transfer to Telemetry today Chest x-ray to be repeated in AM I did order as needed small doses of morphine and also Ativan as patient may have some signs of withdrawal once the drugs start wearing off 2. Leukocytosis, slight lactic acidosis with lactate of 2.2, very high suspicion for aspiration pneumonia or pneumonitis actually with findings of increased infiltrate on the right upper lobe on chest x-ray, On Zosyn. F/u CXR tomorrow Rechecking HIV negative CT chest consistent with CXR findings of bilateral infiltrates 3. Polysubstance drug abuse with significant encephalopathy and lethargy. Resolving. Willing to go to Rehab post discharge. 4. Possible nondisplaced fracture of the nasal spine of the maxilla: Supportive care, patient doesn't even remember traumatic event if any... 5. Mild elevation of total CK, still up. Continue to monitor, continue IV fluids. Prophylaxis: SCDs for DVT prophylaxis, Pepcid for GI prophylaxis Disposition: Transfer to Telemetry and CXR in AM, manager social media following Diuresis prn. Subjective 24 Hr Interval Summary Free Text/Dictation Patient doing better today and on 2L NC and stable. WBC down. On Zosyn Tolerating po Off Narcan gtt x 24 hrs Exam/Review of Systems Vital Signs Vitals Vital Signs Date Time Temp Pulse Resp B/P Pulse Ox O2 Delivery O2 Flow Rate FiO2 06/18/17 12:00 98.3 73 24 126/78 97 Nasal Cannula 2.0 06/17/17 00:40 40 Intake and Output 06/17/17 06/17/17 06/18/17 15:00 23:00 07:00 Intake Total 2415 ml 875 ml 1450 ml Output Total 1900 ml 0 ml 1575 ml Balance 515 ml 875 ml -125 ml Exam Constitutional: alert, oriented, well developed Respiratory: diminished breath sounds (bilateral lower lobes ), normal air movement, other (chest wall tenderness ) Cardiovascular: nl pulses, regular rate and rhythm Gastrointestinal: non-tender, soft Musculoskeletal: nl extremities to inspection Extremities: normal pulses, other (no edema, clubbing or cyanosis ) Neurological: PHOTOGRAPHER APPRENTICE LITHOGRAPHIC II-XII intact, nl mental status, nl speech, other (much more awake ) Results Result Diagram: 06/18/1752406/18/17 0525 Results 24 hrs Laboratory Tests Test 06/18/17 05:25 White Blood Count 7.8 # Red Blood Count 4.44 L Hemoglobin 12.2 L Hematocrit 37.2 L Mean Corpuscular Volume 83.8 Mean Corpuscular Hemoglobin 27.5 L Mean Corpuscular Hemoglobin Concent 32.8 Red Cell Distribution Width 12.9 Platelet Count 202 Mean Platelet Volume 9.8 Neutrophils % 77.8 H Lymphocytes % 9.7 L Monocytes % 10.8 Eosinophils % 1.1 Basophils % 0.3 Nucleated Red Blood Cells % 0.0 Neutrophils # 6.1 Lymphocytes # 0.8 Monocytes # 0.9 Eosinophils # 0.1 Basophils # 0.0 Nucleated Red Blood Cells # 0.0 Sodium Level 139 Potassium Level 3.9 Chloride Level 105 Carbon Dioxide Level 29 Anion Gap 9 Blood Urea Nitrogen 4 #L Creatinine 0.78 Glucose Level 98 Calcium Level 8.8 Phosphorus Level 2.7 Magnesium Level 1.8 Creatine Kinase 327 H Medications Medications Current Medications Ondansetron HCl (Zofran Inj) 4 mg Q6H PRN IV NAUSEA AND/OR VOMITING; Start at 18:30 Acetaminophen (Tylenol Tab) 650 mg Q6H PRN PO PAIN LEVEL 1-3 OR FEVER; Start at 18:30 Morphine Sulfate (morphine) 2 mg Q4H PRN IV PAIN LEVEL 7-10 Last administered on 06/18/17t 03:20; Admin Dose 2 MG; Start 06/16/17 at 18:30 Lorazepam (Ativan) 1 mg Q2H PRN IV ANXIETY; Start 06/16/17 at 18:30 Docusate Sodium (Colace) 100 mg Q12H PRN PO CONSTIPATION; Start 06/16/17 at 18: 30 Magnesium Hydroxide (Milk Of Mag) 30 ml DAILY PRN PO CONSTIPATION; Start at 18:30 Bisacodyl (Dulcolax Supp) 10 mg DAILY PRN [place] CONSTIPATION; Start 06/16/17 at 18 :30 Famotidine 20 mg 20 mg Q12 IV Last administered on 06/18/17 08:46; Admin Dose 20 MG; Start 06/16/17 at 21:00 Dextrose/Sodium Chloride 1,000 ml @ 125 mls/hr Q8H IV Last administered on 08:47; Admin Dose 125 MLS/HR; Start 06/16/17 at 19:00 Piperacillin Sod/ Tazobactam Sod (Zosyn 3.375gm/ 100 ml (Pmx)) 100 ml @ 200 mls /hr Q8 IVPB Last administered on 06/18/17 06:36; Admin Dose 200 MLS/HR; Start 06/17/17 at 09:30 Procedures Procedures PROCEDURE: CT Chest without contrast. CLINICAL INDICATION: Trauma. Hemoptysis. Chest pain. TECHNIQUE: Helical axial sections were obtained through the chest without intravenous contrast enhancement. Coronal and sagittal reformatted images were obtained from the axial source images. Total exam DLP is 187.19 mGy-cm. CTDIvol is 4.34 mGy. One or more of the following dose reduction techniques were used: Automated exposure control, adjustment of the mA and/or kV according to patient size, use of iterative reconstruction technique. COMPARISON: Chest x-ray done earlier the same day. FINDINGS: There is extensive bilateral pulmonary patchy ground-glass opacification of the lungs. There is no pulmonary nodule or mass lesion. There is no mediastinal or hilar lymphadenopathy or mass. There is no axillary, supraclavicular, or internal mammary lymphadenopathy. The thoracic aorta is not dilated. The heart size is normal. There is no pleural effusion or pericardial effusion. Images through the upper abdomen demonstrate normal visualized portions of the liver, spleen, and adrenals. The osseous structures are unremarkable with no fracture or lytic lesion. IMPRESSION: 1. Extensive bilateral pulmonary patchy ground-glass opacification of the lungs , consistent with an inflammatory or infectious process. This can also be seen with pulmonary hemorrhage. Clinical correlation is advised. 2. Otherwise unremarkable study. RPTAT: QQ .Adonis Harrison MD, MD Date Time Electronically viewed and signed by .Adonis Harrison MD, on 06/17/2017 13:19 GENNY ZAVALA Jun 18, 2017 12:30
[2017-06-19] VITALS (13 sets, daily range): BP systolic 116–142; BP diastolic 60–91; PULSE 43–69; RESP 18–20
[2017-06-19] MEDS: DEXTROSE 5%-0.9% NACL 1,000 ML IV SCH (02:51)
[2017-06-19] MEDS: PIPER-TAZO 3.375 GM IV (PMX) 100 ML IVPB SCH ×3 (05:31→22:12)
[2017-06-19] MEDS: FAMOTIDINE 20 MG INJ IV SCH ×2 (09:24→22:12)
[2017-06-19 09:28] LABS: BASOPHILS % 0.5 % (0.0-2.0); EOSINOPHILS # 0.1 10^3/ul (0.0-0.5); EOSINOPHILS % 2.2 % (0.0-7.0); HEMATOCRIT 37.9 % (42.0-52.0); HEMOGLOBIN 12.1 g/dl (14.0-18.0); LYMPHOCYTES # 0.9 10^3/ul (0.8-2.9); LYMPHOCYTES % 16.8 % (15.0-51.0); MEAN CORPUSCULAR HEMOGLOBIN 26.8 pg (29.0-33.0); MEAN CORPUSCULAR HGB CONC 31.9 g/dl (32.0-37.0); MEAN CORPUSCULAR VOLUME 83.8 fl (82.0-101.0); MEAN PLATELET VOLUME 10.1 fl (7.4-10.4); MONOCYTE # 0.8 10^3/ul (0.3-0.9); MONOCYTES % 14.8 % (0.0-11.0); NEUTROPHIL # 3.6 10^3/ul (1.6-7.5); NEUTROPHILS % 65.3 % (39.0-77.0); PLATELET COUNT 199 10^3/UL (140-415); RED BLOOD COUNT 4.52 10^6/ul (4.70-6.10); RED CELL DISTRIBUTION WIDTH 12.8 % (11.5-14.5); WHITE BLOOD COUNT 5.5 10^3/ul (4.8-10.8)
[2017-06-19] MEDS: morphine 2 MG INJ IV PRN (09:41)
[2017-06-19 09:42] LABS: CREATININE 0.86 mg/dl (0.61-1.24); POTASSIUM 3.8 mmol/L (3.5-5.1)
[2017-06-19 09:52] LABS: MAGNESIUM 1.6 mg/dl (1.7-2.5); PHOSPHORUS 2.9 mg/dl (2.5-4.9)
[2017-06-19] MEDS ORDERED: POTASSIUM CHLORIDE (SR) 20 MEQ TAB PO STA (10:20)
[2017-06-19] MEDS ORDERED: MAGNESIUM SULFATE 4 GM/100 ML 100 ML IVPB ONE (10:30)
--- NOTE | 2017-06-19 11:11 | PN ---
Date/Time of Note Date/Time of Note DATE: 06/19/17 TIME: 10:56 Assessment/Plan VTE Prophylaxis VTE Prophylaxis Intervention: SCD's Lines/Catheters IV Catheter Type (from Nrs): Peripheral IV Urinary Cath still in place: No Assessment/Plan Assessment/Plan 21-year-old male with: 1. 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 Sheldon, patient on RA and stable this AM. Follow up Chest x-ray today and Pulmonary recs D/c plan to rehab tomorrow 2. Leukocytosis, slight lactic acidosis with lactate of 2.2, very high suspicion for aspiration pneumonia or pneumonitis actually with findings of increased infiltrate on the right upper lobe on chest x-ray, F/u on CXR today, d/c plan to rehab tomorrow if OK with Pulmonary May need Augmentin for 3 more days at d/c at most Rechecking HIV negative. 3. Polysubstance drug abuse with significant encephalopathy and lethargy. Resolved. To Rehab 06/20. 4. Possible nondisplaced fracture of the nasal spine of the maxilla: Supportive care, patient doesn't even remember traumatic event if any... Tramadol prn 5. Mild elevation of total CK, still up. Trending down Po fluids. Replete electrolytes today. Prophylaxis: SCDs for DVT prophylaxis, Pepcid for GI prophylaxis Disposition: D/w SW and patient, plan for d/c to rehab tomorrow, to be picked up by his case finisher at that time. Subjective 24 Hr Interval Summary Free Text/Dictation Patient doing well, on RA D/c IVF Ambulation Replete electrolytes D/c plan to rehab tomorrow Exam/Review of Systems Vital Signs Vitals Vital Signs Date Time Temp Pulse Resp B/P Pulse Ox O2 Delivery O2 Flow Rate FiO2 06/19/17 08:39 Nasal Cannula 2.0 06/19/17 08:11 98.0 53 18 125/87 100 06/17/17 00:40 40 Intake and Output 06/18/17 06/18/17 06/19/17 15:00 23:00 07:00 Intake Total 1600 ml 350 ml 2000 ml Output Total 700 ml 600 ml Balance 900 ml 350 ml 1400 ml Exam Constitutional: alert, oriented, well developed Respiratory: normal air movement, other (better air movement ) Cardiovascular: nl pulses, regular rate and rhythm Gastrointestinal: non-tender, soft Musculoskeletal: nl extremities to inspection, nl gait and stance Neurological: SUPERVISOR AREA II-XII intact, nl mental status, nl speech, nl strength Results Result Diagram: 06/19/1731 06/19/17 0831 Results 24 hrs Laboratory Tests Test 06/19/17 08:31 White Blood Count 5.5 # Red Blood Count 4.52 L Hemoglobin 12.1 L Hematocrit 37.9 L Mean Corpuscular Volume 83.8 Mean Corpuscular Hemoglobin 26.8 L Mean Corpuscular Hemoglobin Concent 31.9 L Red Cell Distribution Width 12.8 Platelet Count 199 Mean Platelet Volume 10.1 Neutrophils % 65.3 Lymphocytes % 16.8 Monocytes % 14.8 H Eosinophils % 2.2 Basophils % 0.5 Nucleated Red Blood Cells % 0.0 Neutrophils # 3.6 Lymphocytes # 0.9 Monocytes # 0.8 Eosinophils # 0.1 Basophils # 0.0 Nucleated Red Blood Cells # 0.0 Sodium Level 138 Potassium Level 3.8 Chloride Level 101 Carbon Dioxide Level 33 H Anion Gap 8 Blood Urea Nitrogen 3 L Creatinine 0.86 Glucose Level 93 Calcium Level 9.0 Phosphorus Level 2.9 Magnesium Level 1.6 L Creatine Kinase 218 H Medications Medications Current Medications Ondansetron HCl (Zofran Inj) 4 mg Q6H PRN IV NAUSEA AND/OR VOMITING; Start at 18:30 Acetaminophen (Tylenol Tab) 650 mg Q6H PRN PO PAIN LEVEL 1-3 OR FEVER Last administered on 06/18/17 17:40; Admin Dose 650 MG; Start 06/16/17 at 18:30 Morphine Sulfate (morphine) 2 mg Q4H PRN IV PAIN LEVEL 7-10 Last administered on 06/19/17 09:41; Admin Dose 2 MG; Start 06/16/17 at 18:30 Lorazepam (Ativan) 1 mg Q2H PRN IV ANXIETY; Start 06/16/17 at 18:30 Docusate Sodium (Colace) 100 mg Q12H PRN PO CONSTIPATION; Start 06/16/17 at 18: 30 Magnesium Hydroxide (Milk Of Mag) 30 ml DAILY PRN PO CONSTIPATION; Start at 18:30 Bisacodyl (Dulcolax Supp) 10 mg DAILY PRN [place] CONSTIPATION; Start 06/16/17 at 18 :30 Famotidine 20 mg 20 mg Q12 IV Last administered on 06/19/17 09:24; Admin Dose 20 MG; Start 06/16/17 at 21:00 Dextrose/Sodium Chloride 1,000 ml @ 125 mls/hr Q8H IV Last administered on 02:51; Admin Dose 125 MLS/HR; Start 06/16/17 at 19:00 Piperacillin Sod/ Tazobactam Sod 100 ml @ 200 mls/hr Q8 IVPB Last administered on 06/19/17 05:31; Admin Dose 200 MLS/HR; Start 06/17/17 at 09:30 Magnesium Sulfate (Magnesium Sulfate 4 Gm/100 ml) 100 ml @ 25 mls/hr ONCE ONCE IVPB ; Start 06/19/17 at 10:30; Stop 06/19/17 at 14:29 GENNY ZAVALA Jun 19, 2017 11:06
--- NOTE | 2017-06-19 11:12 | RADRPT ---
PROCEDURE: CHEST - 1 VIEW CLINICAL INDICATION: 21-year-old male with shortness of breath. TECHNIQUE: A single frontal AP erect portable view of the chest was performed. The images were re viewed on a PACS workstation. COMPARISON: CT CHEST 06/17/2017; DR CHEST 06/17/2017 FINDINGS: The cardiomediastinal silhouette is within normal limits without significant interval change. There are persistent but clearing bilateral diffuse air space ground-glass infiltrates. This is again note d to be somewhat more prominent within the right upper lung zone. There is no evidence for pneumotho rax or pneumomediastinum. The osseous structures are intact. IMPRESSION: Persistent but clearing bilateral diffuse air space ground-glass infiltrates. .Shaan Soto MD, Date Time Electronically viewed and signed by .Shaan Soto MD, on 06/19/2017 11:11 .Yaa/
[2017-06-19] MEDS ORDERED: traMADol 50 MG TAB PO PRN (11:30)
--- NOTE | 2017-06-19 12:27 | CONS ---
Date/Time of Note Date/Time of Note DATE: 06/19/17 TIME: 12:25 Assessment/Plan Assessment/Plan Additional Assessment/Plan Chest x-ray was reviewed from today which showed improving bilateral alveolar infiltrates. Assessment and recommendations; 1. Patient admitted with multidrug overdose with marked overall clinical improvement. 2. Noncardiogenic pulmonary edema with clinical and radiological improvement. 3. Difficult to rule out superimposed patchy pneumonia. Continue current treatment. Consultation Date/Type/Reason Admit Date/Time Jun 16, 2017 at 14:24 Type of Consultation: Pulm/CCM Referring Provider: GENNY ZAVALA 24 HR Interval Summary Free Text/Dictation Patient's condition is stable. Has been transferred out of ICU to the medical floor. Remains awake and alert. Denies any shortness breath, coughing, chest pain. General exam; young male, awake alert currently in no distress. Exam/Review of Systems Vital Signs Vitals Vital Signs Date Time Temp Pulse Resp B/P Pulse Ox O2 Delivery O2 Flow Rate FiO2 06/19/17 11:50 98.6 69 18 135/90 98 06/19/17 08:39 Nasal Cannula 2.0 06/17/17 00:40 40 Intake and Output 06/18/17 06/18/17 06/19/17 15:00 23:00 07:00 Intake Total 1600 ml 350 ml 2000 ml Output Total 700 ml 600 ml Balance 900 ml 350 ml 1400 ml Exam HEENT exam; supple neck, no JVD. No lymphadenopathy. Midline trachea. No thyromegaly. Patient has good dentition. Pupils are midsize and reactive to light. Chest exam; clear to auscultation. S1-S2 audible, no murmurs. Regular rhythm. Abdomen exam; soft, no organomegaly. Nontender. Bowel sounds audible. Extremity exam; no peripheral edema. No clubbing. Pulses 2+ bilaterally. EXTENSION CLERK exam; no focal deficit. Results Result Diagram: 06/19/17 0831 06/19/17 0831 Results 24 hrs Laboratory Tests Test 06/19/17 08:31 White Blood Count 5.5 # Red Blood Count 4.52 L Hemoglobin 12.1 L Hematocrit 37.9 L Mean Corpuscular Volume 83.8 Mean Corpuscular Hemoglobin 26.8 L Mean Corpuscular Hemoglobin Concent 31.9 L Red Cell Distribution Width 12.8 Platelet Count 199 Mean Platelet Volume 10.1 Neutrophils % 65.3 Lymphocytes % 16.8 Monocytes % 14.8 H Eosinophils % 2.2 Basophils % 0.5 Nucleated Red Blood Cells % 0.0 Neutrophils # 3.6 Lymphocytes # 0.9 Monocytes # 0.8 Eosinophils # 0.1 Basophils # 0.0 Nucleated Red Blood Cells # 0.0 Sodium Level 138 Potassium Level 3.8 Chloride Level 101 Carbon Dioxide Level 33 H Anion Gap 8 Blood Urea Nitrogen 3 L Creatinine 0.86 Glucose Level 93 Calcium Level 9.0 Phosphorus Level 2.9 Magnesium Level 1.6 L Creatine Kinase 218 H Medications Medications Current Medications Ondansetron HCl (Zofran Inj) 4 mg Q6H PRN IV NAUSEA AND/OR VOMITING; Start at 18:30 Acetaminophen (Tylenol Tab) 650 mg Q6H PRN PO PAIN LEVEL 1-3 OR FEVER Last administered on 06/18/17 17:40; Admin Dose 650 MG; Start 06/16/17 at 18:30 Lorazepam (Ativan) 1 mg Q2H PRN IV ANXIETY; Start 06/16/17 at 18:30 Docusate Sodium (Colace) 100 mg Q12H PRN PO CONSTIPATION; Start 06/16/17 at 18: 30 Magnesium Hydroxide (Milk Of Mag) 30 ml DAILY PRN PO CONSTIPATION; Start at 18:30 Bisacodyl (Dulcolax Supp) 10 mg DAILY PRN [place] CONSTIPATION; Start 06/16/17 at 18 :30 Famotidine 20 mg 20 mg Q12 IV Last administered on 06/19/17 09:24; Admin Dose 20 MG; Start 06/16/17 at 21:00 Piperacillin Sod/ Tazobactam Sod 100 ml @ 200 mls/hr Q8 IVPB Last administered on 06/19/17 05:31; Admin Dose 200 MLS/HR; Start 06/17/17 at 09:30 Magnesium Sulfate (Magnesium Sulfate 4 Gm/100 ml) 100 ml @ 25 mls/hr ONCE ONCE IVPB Last administered on 06/19/17 12:11; Admin Dose 25 MLS/HR; Start at 10:30; Stop 06/19/17 at 14:29 Tramadol HCl (Ultram) 50 mg Q6H PRN PO PAIN; Start 06/19/17 at 11:30 EMILEE CASTLE Jun 19, 2017 12:27
[2017-06-20 00:17] VITALS: PULSE 50
[2017-06-20 04:08] VITALS: BP 122/76; RESP 18
[2017-06-20 04:15] VITALS: PULSE 56
[2017-06-20] MEDS: PIPER-TAZO 3.375 GM IV (PMX) 100 ML IVPB SCH (06:23)
[2017-06-20 07:41] VITALS: BP 130/79; RESP 18
[2017-06-20 08:30] VITALS: PULSE 50
[2017-06-20 08:45] LABS: BASOPHILS % 0.6 % (0.0-2.0); EOSINOPHILS # 0.1 10^3/ul (0.0-0.5); EOSINOPHILS % 2.6 % (0.0-7.0); HEMATOCRIT 37.4 % (42.0-52.0); HEMOGLOBIN 12.2 g/dl (14.0-18.0); LYMPHOCYTES % 20.7 % (15.0-51.0); MEAN CORPUSCULAR HEMOGLOBIN 26.5 pg (29.0-33.0); MEAN CORPUSCULAR HGB CONC 32.6 g/dl (32.0-37.0); MEAN CORPUSCULAR VOLUME 81.3 fl (82.0-101.0); MEAN PLATELET VOLUME 9.9 fl (7.4-10.4); MONOCYTE # 0.7 10^3/ul (0.3-0.9); MONOCYTES % 14.8 % (0.0-11.0); NEUTROPHILS % 60.9 % (39.0-77.0); PLATELET COUNT 214 10^3/UL (140-415); RED CELL DISTRIBUTION WIDTH 12.5 % (11.5-14.5); WHITE BLOOD COUNT 4.9 10^3/ul (4.8-10.8)
[2017-06-20] MEDS: FAMOTIDINE 20 MG INJ IV SCH (09:55)
[2017-06-20 10:15] LABS: CALCIUM 8.9 mg/dl (8.4-10.2); CREATININE 0.84 mg/dl (0.61-1.24); POTASSIUM 4.1 mmol/L (3.5-5.1)
[2017-06-20 10:18] LABS: MAGNESIUM 1.7 mg/dl (1.7-2.5)
--- NOTE | 2017-06-20 11:02 | CONS ---
Date/Time of Note Date/Time of Note DATE: 06/20/17 TIME: 11:00 Assessment/Plan Assessment/Plan Additional Assessment/Plan Assessment and recommendations; 1. Patient admitted with multidrug overdose with marked overall clinical improvement. 2. Bilateral alveolar infiltrates likely indicative of noncardiogenic pulmonary edema with marked radiological clearance as well. Findings are not suggestive of pneumonia. Consider discharge off antibiotics. Consultation Date/Type/Reason Admit Date/Time Jun 16, 2017 at 14:24 Type of Consultation: Pulm/CCM Referring Provider: GENNY ZAVALA 24 HR Interval Summary Free Text/Dictation Patient's condition is stable. Ambulating in the hallways. Denies any shortness of breath, chest pain, cough or wheezing. General exam; young male, awake and alert. Currently in no distress. Exam/Review of Systems Vital Signs Vitals Vital Signs Date Time Temp Pulse Resp B/P Pulse Ox O2 Delivery O2 Flow Rate FiO2 06/20/17 08:30 50 06/20/17 07:41 98.3 18 130/79 100 06/19/17 16:54 2.0 06/19/17 08:39 Nasal Cannula 06/17/17 00:40 40 Intake and Output 06/19/17 06/19/17 06/20/17 15:00 23:00 07:00 Intake Total 900 ml 300 ml Output Total 600 ml Balance 900 ml -300 ml Exam HEENT exam; supple neck, no JVD. No lymphadenopathy. Midline trachea. No thyromegaly. Pharynx is clear. Patient has good dentition. Chest exam; clear to auscultation. S1-S2 audible, no murmurs. Regular rhythm. Abdomen exam; soft, nontender. No organomegaly. Bowel sounds audible. Extremity exam; no peripheral edema. MEDICAL RESEARCH ASSOCIATE exam; no focal deficit. Results Result Diagram: 06/20/17 0747 06/20/17 0747 Results 24 hrs Laboratory Tests Test 06/20/17 07:47 White Blood Count 4.9 Red Blood Count 4.60 L Hemoglobin 12.2 L Hematocrit 37.4 L Mean Corpuscular Volume 81.3 L Mean Corpuscular Hemoglobin 26.5 L Mean Corpuscular Hemoglobin Concent 32.6 Red Cell Distribution Width 12.5 Platelet Count 214 Mean Platelet Volume 9.9 Neutrophils % 60.9 Lymphocytes % 20.7 Monocytes % 14.8 H Eosinophils % 2.6 Basophils % 0.6 Nucleated Red Blood Cells % 0.0 Neutrophils # 3.0 Lymphocytes # 1.0 Monocytes # 0.7 Eosinophils # 0.1 Basophils # 0.0 Nucleated Red Blood Cells # 0.0 Sodium Level 137 Potassium Level 4.1 Chloride Level 101 Carbon Dioxide Level 30 Anion Gap 10 Blood Urea Nitrogen 4 L Creatinine 0.84 Glucose Level 82 Calcium Level 8.9 Magnesium Level 1.7 Creatine Kinase 120 Medications Medications Current Medications Ondansetron HCl (Zofran Inj) 4 mg Q6H PRN IV NAUSEA AND/OR VOMITING; Start at 18:30 Acetaminophen (Tylenol Tab) 650 mg Q6H PRN PO PAIN LEVEL 1-3 OR FEVER Last administered on 06/18/17 17:40; Admin Dose 650 MG; Start 06/16/17 at 18:30 Lorazepam (Ativan) 1 mg Q2H PRN IV ANXIETY; Start 06/16/17 at 18:30 Docusate Sodium (Colace) 100 mg Q12H PRN PO CONSTIPATION; Start 06/16/17 at 18: 30 Magnesium Hydroxide (Milk Of Mag) 30 ml DAILY PRN PO CONSTIPATION; Start at 18:30 Bisacodyl (Dulcolax Supp) 10 mg DAILY PRN [place] CONSTIPATION; Start 06/16/17 at 18 :30 Famotidine 20 mg 20 mg Q12 IV Last administered on 06/20/17 09:55; Admin Dose 20 MG; Start 06/16/17 at 21:00 Piperacillin Sod/ Tazobactam Sod (Zosyn 3.375gm/ 100 ml (Pmx)) 100 ml @ 200 mls /hr Q8 IVPB Last administered on 06/20/17 06:23; Admin Dose 200 MLS/HR; Start 06/17/17 at 09:30 Tramadol HCl (Ultram) 50 mg Q6H PRN PO PAIN Last administered on 06/19/17 18: 30; Admin Dose 50 MG; Start 06/19/17 at 11:30 EMILEE CASTLE Jun 20, 2017 11:02
--- NOTE | 2017-06-20 11:45 | PN ---
Date/Time of Note Date/Time of Note DATE: 06/20/17 TIME: 11:44 Assessment/Plan VTE Prophylaxis VTE Prophylaxis Intervention: SCD's Lines/Catheters IV C[facility]ter [facility]from [facility] Urinary Cath still in place: No Assessment/Plan Assessment/Plan 21-year-old male with: 1. 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 Sheldon, patient on RA and stable this AM. Chest x-ray yesterday with resolving infiltrates and RUL infiltrate still present D/c home on Augmenting x 5 more days and plan to rehab today 2. Leukocytosis, slight lactic acidosis with lactate of 2.2, very high suspicion for aspiration pneumonia or pneumonitis actually with findings of increased infiltrate on the right upper lobe on chest x-ray, Augmentin for 5 more days for aspiration PNA. Rechecking HIV negative. 3. Polysubstance drug abuse with significant encephalopathy and lethargy. Resolved. To Rehab today. 4. Possible nondisplaced fracture of the nasal spine of the maxilla: Supportive care, patient doesn't even remember traumatic event if any... Tylenol OTC prn 5. Mild elevation of total CK, still up. Resolved. Prophylaxis: SCDs for DVT prophylaxis, Pepcid for GI prophylaxis Disposition: D/w SW and patient, d/c home today and to rehab today from home, to be picked up by his mother today. Subjective 24 Hr Interval Summary Free Text/Dictation Patient doing well On RA and CXR better, still with RUL infiltrate c/w aspiration D/c home with admission to Detox rehab today, Mother to pick patient up Exam/Review of Systems Vital Signs Vitals Vital Signs Date Time Temp Pulse Resp B/P Pulse Ox O2 Delivery O2 Flow Rate FiO2 06/20/17 08:30 50 06/20/17 07:41 98.3 18 130/79 100 06/19/17 16:54 2.0 06/19/17 08:39 Nasal Cannula 06/17/17 00:40 40 Intake and Output 06/19/17 06/19/17 06/20/17 15:00 23:00 07:00 Intake Total 900 ml 300 ml Output Total 600 ml Balance 900 ml -300 ml Exam Constitutional: alert, oriented, well developed Respiratory: clear to auscultation, normal air movement Cardiovascular: nl pulses, regular rate and rhythm Gastrointestinal: non-tender, soft Musculoskeletal: nl extremities to inspection, nl gait and stance Extremities: normal pulses Neurological: MDS RN II-XII intact, nl mental status, nl speech, nl strength Results Result Diagram: 06/20/17 0747 06/20/17 0747 Results 24 hrs Laboratory Tests Test 06/20/17 07:47 White Blood Count 4.9 Red Blood Count 4.60 L Hemoglobin 12.2 L Hematocrit 37.4 L Mean Corpuscular Volume 81.3 L Mean Corpuscular Hemoglobin 26.5 L Mean Corpuscular Hemoglobin Concent 32.6 Red Cell Distribution Width 12.5 Platelet Count 214 Mean Platelet Volume 9.9 Neutrophils % 60.9 Lymphocytes % 20.7 Monocytes % 14.8 H Eosinophils % 2.6 Basophils % 0.6 Nucleated Red Blood Cells % 0.0 Neutrophils # 3.0 Lymphocytes # 1.0 Monocytes # 0.7 Eosinophils # 0.1 Basophils # 0.0 Nucleated Red Blood Cells # 0.0 Sodium Level 137 Potassium Level 4.1 Chloride Level 101 Carbon Dioxide Level 30 Anion Gap 10 Blood Urea Nitrogen 4 L Creatinine 0.84 Glucose Level 82 Calcium Level 8.9 Magnesium Level 1.7 Creatine Kinase 120 Medications Medications Current Medications Ondansetron HCl (Zofran Inj) 4 mg Q6H PRN IV NAUSEA AND/OR VOMITING; Start at 18:30 Acetaminophen (Tylenol Tab) 650 mg Q6H PRN PO PAIN LEVEL 1-3 OR FEVER Last administered on 06/18/17 17:40; Admin Dose 650 MG; Start 06/16/17 at 18:30 Lorazepam (Ativan) 1 mg Q2H PRN IV ANXIETY; Start 06/16/17 at 18:30 Docusate Sodium (Colace) 100 mg Q12H PRN PO CONSTIPATION; Start 06/16/17 at 18: 30 Magnesium Hydroxide (Milk Of Mag) 30 ml DAILY PRN PO CONSTIPATION; Start at 18:30 Bisacodyl (Dulcolax Supp) 10 mg DAILY PRN [place] CONSTIPATION; Start 06/16/17 at 18 :30 Famotidine 20 mg 20 mg Q12 IV Last administered on 06/20/17 09:55; Admin Dose 20 MG; Start 06/16/17 at 21:00 Piperacillin Sod/ Tazobactam Sod (Zosyn 3.375gm/ 100 ml (Pmx)) 100 ml @ 200 mls /hr Q8 IVPB Last administered on 06/20/17 06:23; Admin Dose 200 MLS/HR; Start 06/17/17 at 09:30 Tramadol HCl (Ultram) 50 mg Q6H PRN PO PAIN Last administered on 06/19/17 18: 30; Admin Dose 50 MG; Start 06/19/17 at 11:30 Procedures Procedures PROCEDURE: CHEST - 1 VIEW CLINICAL INDICATION: 21-year-old male with shortness of breath. TECHNIQUE: A single frontal AP erect portable view of the chest was performed. The images were reviewed on a PACS workstation. COMPARISON: CT CHEST 06/17/2017; DR CHEST 06/17/2017 FINDINGS: The cardiomediastinal silhouette is within normal limits without significant interval change. There are persistent but clearing bilateral diffuse air space ground-glass infiltrates. This is again noted to be somewhat more prominent within the right upper lung zone. There is no evidence for pneumothorax or pneumomediastinum. The osseous structures are intact. IMPRESSION: Persistent but clearing bilateral diffuse air space ground-glass infiltrates. .Shaan Soto MD, MD Date Time Electronically viewed and signed by .Shaan Soto MD, on 06/19/2017 11:11 GENNY ZAVALA Jun 20, 2017 11:45
--- NOTE | 2017-06-20 11:46 | PDOCDIS ---
Discharge Instructions CONDITION Patient Condition: Stable HOME CARE INSTRUCTIONS: Special Diet: Regular ACTIVITY: Activity Restrictions: No Restrictions FOLLOW UP/APPOINTMENTS Follow-up Plan Follow up with Detox/rehab today GENNY ZAVALA Jun 20, 2017 11:46
[2017-06-20] MEDS ORDERED: AMOX1TAB10 PO (11:47)
[2017-06-20 11:54] VITALS: BP 134/80; RESP 18
[2017-06-20] MEDS ORDERED: AMOXICILLIN/CLAV 875 MG TAB PO SCH (21:00)
== END 2017-06-20 13:30 | disposition home or self-care (01) | DRG 917 ==
LOC: E/R 12:19 → ICU 14:24 → UNDOADMIN 14:24 → MS4 06-18 15:33
PROVIDERS: ADMIT Internal Medicine; ATTEND Internal Medicine
PROC: 5A09357 Assistance with Respiratory Ventilation, Less than 24 Consecutive Hours, Continuous Positive Airway Pressure (ICD-10-PCS; principal; 2017-06-16)
DX: T40.1X4A Poisoning by heroin, undetermined, initial encounter (principal); J96.01 Acute respiratory failure with hypoxia; J96.02 Acute respiratory failure with hypercapnia; G92 Toxic encephalopathy; E87.2 Acidosis; S02.40DA Maxillary fracture, left side, initial encounter for closed fracture; F15.129 Other stimulant abuse with intoxication, unspecified; J70.2 Acute drug-induced interstitial lung disorders; T50.7X5A Adverse effect of analeptics and opioid receptor antagonists, initial encounter; F14.10 Cocaine abuse, uncomplicated; F11.10 Opioid abuse, uncomplicated; F12.10 Cannabis abuse, uncomplicated; F19.10 Other psychoactive substance abuse, uncomplicated; F17.210 Nicotine dependence, cigarettes, uncomplicated; W18.39XA Other fall on same level, initial encounter; Y93.89 Activity, other specified; Y92.019 Unspecified place in single-family (private) house as the place of occurrence of the external cause; Z87.820 Personal history of traumatic brain injury
CPT/HCPCS: 36415; 36600; 70450; 70486; 71010; 71250; 80048; 80053; 80306; 80307; 81001; 82550; 82803; 83605; 83735; 84100; 85025; 86703; 87081; 93005; 94660; 96374; 96375; J1940; J2270; J2310; J2405; J2543; J7030; J7042